=== PATIENT | female | born 1945 | race Two or more races ===

== ENCOUNTER 2025-07-11 11:00 | Outpatient (RCR) | payer OTHER, SELFPAY ==
--- NOTE | 2025-07-03 11:02 | PT.OIERPT ---
PT OP Initial Eval Patient Information Visit Reasons: right wrist pain Medical Diagnosis: M81.0 Treatment Dx #1: Back Pain Treatment Dx #2: Bilateral Hip pain Start of Care: 07/03/25 Date of Onset: 1 year ago Smoking Status Smoking Status: Never smoker Initial Assessment Subjective: Pt is a 80 y/o female reports of back and bilateral hip pain (03/28) ~ 1 year ago. Pt mentioned she experience intermittent left LE pain. Pt has limitation with prolonged sitting, standing, chores, walking, balance, and performing recreational activities. Objective: L/S AROM: all motions are WFL Hip PROM: all motions are WFL Hip MMTs: grossly 3+/5 Muscle Length: Hs tightness L>R Assessment: Pt demonstrate back and bilateral hip pain with LE weakness leading to difficulty with ADLs. 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 1) Increase L/S AROM WNL in 6 wks to be able to perform chores 2) Decrease back and hip pain to 2/10 in 6 wks to be able to stand more than 30 mins 3) Increase core strength WFL in 6 wks to be able to perform recreational activities 4) Increase hip MMTs grossly to 4-/5 in 6 wks to be able to walk more than 30 mins 5) Indep with HEP Treatment Plan 1) Manual Therapy 2) Therapeutic Activities 3) Therapeutic Exercises 4) Modalities (ice, heat) 5) Balance Training Frequency and Duration: 2 x wk for 6 wks Certification Dates: 07/03/25 to 10/02/25 Procedure Charges OP PT Eval Mod Complex 30 minutes: Yes
--- NOTE | 2025-07-11 12:02 | PT.ODAYNRPT ---
PT Outpatient Daily Note OP Daily Note Outpatient Physical Therapy Treatment Date: 07/11/25 Visit Reasons: right wrist pain Subjective: pt reports LBP on R side. Objective: Please see flow sheet for ther ex list. Assessment: Interventions completed with minimal pain, no complaints. Plan: Continue with pOC, assess response to treatment,. Length of Time (minutes) of Treatment: 30 Minutes [employer]OL [employer]IE [employer]KER LEVEL FIVE Service Modifier Method I: Divide the number of min of care provided by the TOOL AND DIE MAKER LEVEL FIVE/JOHNNA by the total min of care provided then multiply by 100. If greater than 11 percent modifier is required. Method II: Divide the total time of care provided to patient by 10 (round to the nearest whole number) and add 1 min. to set the minimum time requirement. If treatment total was 60 min., then 10% of 6 min PT CQ modifier applied: CQ Modifier applied Procedure Charges Therapeutic Exercise 30 minutes: Yes
== END 2025-07-18 23:59 | disposition home or self-care (01) ==
LOC: CPTX 11:00
PROVIDERS: PCP Nurse Practitioner Family; Referring Provider Nurse Practitioner Family; Visit Provider Nurse Practitioner Family
DX: M25.552 Pain in left hip (principal); M25.551 Pain in right hip; M54.9 Dorsalgia, unspecified; M79.605 Pain in left leg; R53.1 Weakness; R26.2 Difficulty in walking, not elsewhere classified; R26.89 Other abnormalities of gait and mobility
CPT/HCPCS: 97110; 97162